=== PATIENT | male | born 1935 | race Caucasian/White ===

== ENCOUNTER 2022-01-29 07:15 | Emergency (ER) | payer OTHER, MEDICARE ==
[~2022-01-29] VITALS: Ht 172.7 cm; Wt 80.7 kg
[2022-01-29 07:29] VITALS: BP_SYST 145
--- NOTE | 2022-01-29 07:36 | NUR ---
Patient to ER bed 07 to gown for evaluation. Side rails up. Report given to LISHA GAN
--- NOTE | 2022-01-29 07:45 | NUR ---
patient ambulatory to er c/o urine retention, associated with hx of prostate and and changed of med, awaiting for edp initial assessment.
--- NOTE | 2022-01-29 08:00 | NUR ---
edp at bedside for initial assessment and order.
--- NOTE | 2022-01-29 08:26 | NUR ---
Arias # 16 inserted for 400 cc pale yellow urine, Edp made aware.
--- NOTE | 2022-01-29 08:49 | NUR ---
leg bag in place awaiting for disposition. at bedside.
--- NOTE | 2022-01-29 08:59 | NUR ---
all result back edp rteassess patient and d/c home with instruction.
--- NOTE | 2022-01-29 09:01 | NUR ---
Patient given written and verbal discharge instructions and verbalizes understanding. ER MD discussed with patient the results and treatment provided. Patient in stable condition. ID arm band removed. IV catheter removed intact and dressing applied, no active bleeding. Rx of given. Patient educated on pain management and to follow up with PMD. Pain Scale . Opportunity for questions provided and answered. Medication side effect fact sheet provided.
== END 2022-01-29 09:01 | disposition home or self-care (01) ==
LOC: SED 07:15
DX: R33.9 Retention of urine, unspecified (principal); Z88.1 Allergy status to other antibiotic agents; Z88.8 Allergy status to other drugs, medicaments and biological substances; Z79.899 Other long term (current) drug therapy
CPT/HCPCS: 81002; 99284